=== PATIENT | female | born 1995 | race Two or more races ===

== ENCOUNTER 2024-04-18 14:16 | Outpatient (CLI) | payer OTHER | END 2024-04-18 14:21 | disposition home or self-care (01) | LOC: PRENATAL 14:16 | PROVIDERS: ATTEND Obstetrics & Gynecology Maternal & Fetal Medicine | DX: O36.80X0 Pregnancy with inconclusive fetal viability, not applicable or unspecified (principal); Z36.82 Encounter for antenatal screening for nuchal translucency; Z14.8 Genetic carrier of other disease; Z3A.12 12 weeks gestation of pregnancy ==

== ENCOUNTER 2024-04-26 21:02 | Emergency (ER) | payer OTHER ==
[~2024-04-26] VITALS: Ht 170.2 cm; Wt 63.0 kg
[2024-04-26] MEDS ORDERED: VITATRUE COMBO1 EACH (21:36)
[2024-04-26] MEDS ORDERED: LEVOTHYROXINE25 MC2 PO (21:37)
[2024-04-26] MEDS ORDERED: ONDANSETRON HCL 2 MG/ML VIAL IV ONE (22:15)
[2024-04-26] MEDS ORDERED: 0.9 % SODIUM CHLORIDE 1,000 ML IV ONE (22:30)
[2024-04-26 23:19] LABS: HEMATOCRIT 41.4 % (36.0-45.00); HEMOGLOBIN 13.6 g/dL (12.0-15.00); MEAN CELL VOLUME 75.5 fL (80.00-100.00); MEAN CORPUSCULAR HEMOGLOBIN 24.8 pg (27.00-32.0); MEAN CORPUSCULAR HGB CONC 32.8 g/dl (32.0-36.0); PLATELET COUNT 284 K/uL (150-450); RED BLOOD COUNT 5.48 M/uL (4.00-6.00)
[2024-04-27] MEDS ORDERED: ONDANSETRON ODT4 MG PO (03:46)
== END 2024-04-27 04:28 ==
LOC: ER 21:04
PROVIDERS: General Practice
DX: Z34.90 Encounter for supervision of normal pregnancy, unspecified, unspecified trimester (principal); R11.10 Vomiting, unspecified; E03.8 Other specified hypothyroidism